=== PATIENT | female | born 1980 | race Caucasian/White ===

== ENCOUNTER 2021-09-02 10:15 | Outpatient (CLI) | payer BC | END 2021-09-02 10:16 | disposition home or self-care (01) | LOC: LABBT 10:15 | PROVIDERS: ATTEND Family Medicine | DX: Z20.822 Contact with and (suspected) exposure to COVID-19 (principal) | CPT/HCPCS: U0003; U0005 ==

== ENCOUNTER 2021-09-05 08:47 | Outpatient (CLI) | payer BC | END 2021-09-05 08:48 | disposition home or self-care (01) | LOC: RAD 08:47 | PROVIDERS: ATTEND Otolaryngology Plastic Surgery within the Head & Neck | DX: R13.12 Dysphagia, oropharyngeal phase (principal); R13.13 Dysphagia, pharyngeal phase; R63.30 Feeding difficulties, unspecified | CPT/HCPCS: 74230 ==

== ENCOUNTER 2021-12-16 13:50 | Outpatient (CLI) | payer BC | END 2021-12-16 13:51 | disposition home or self-care (01) | LOC: SCSMRI 13:50 | PROVIDERS: ATTEND Psychiatry & Neurology Neurology | DX: R47.02 Dysphasia (principal); I63.9 Cerebral infarction, unspecified | CPT/HCPCS: 70543; 70551 ==

== ENCOUNTER 2022-11-21 14:39 | Outpatient (CLI) | payer BC | END 2022-11-21 14:40 | disposition home or self-care (01) | LOC: SCSRAD 14:39 | PROVIDERS: ATTEND Family Medicine | DX: S99.922A Unspecified injury of left foot, initial encounter (principal) ==